=== PATIENT | male | born 1940 | race Caucasian/White ===

== ENCOUNTER → 2017-02-13 | Outpatient (CLI) | payer OTHER, BC ==
[~2017-02-13] MED LIST: ALFUZOSIN HCL10 MG PO; BP MED; DIOVAN160 MG PO; FLOMAX0.4 MG PO; LEVOTHYROXINE0.2 M1 PO; LIPITOR 10 MG10 M1; LIPITOR 20 MG T20 M1 PO; NORVASC10 MG PO; SYNTHROID175 MCG; VENTOLIN HFA 1818 GM INH
--- NOTE | ~2017-02-13 | EKG ---
[address] [place] [email or web address] [address] ELECTROCARDIOGRAM REPORT Name: PASCALE SINGLETON I [facility] [id number] Admission: 02/13/17 Attend Phys: Gee Ford MD, F Discharge: Date of : 42 Report #: [id number] THIS REPORT FOR: //name// [facility] Test Date: 2017-02-13 Test Time: 11:20:32 Pat Name: PASCALE SINGLETON Department: Room: Gender: Cand[place]: [facility] : 1940 Requested By: Gee Ford Order Number: [id number] MD: Aneudy Cervantes Measurements Intervals [place] Rate: 62 P: ID: QRS: -1 QRSD: 100 T: 72 QT: 423 QTc: 430 Interpretive Statements Atrial fibrillation Probable left ventricular hypertrophy Compared to ECG 05/12/2014 11:16:44 Sinus rhythm no longer present Electronically Signed On 02-14-2017 6:52:28 CDT by Aneudy Cervantes [email or web address] <ELECTRONICALLY SIGNED> By: Aneudy Cervantes MD, [facility] 02/14/17 0652 1120 1120 Aneudy Cervantes MD, FACC /EPI
[2017-02-13 11:06] LABS: ABSOLUTE NEUTROPHILS 5.9 thou/uL (1.4-8.2); BASOPHILS 0.8 % (0.0-2.0); EOSINOPHILS 5.6 % (0.0-3.0); HEMATOCRIT 40.2 % (42.0-52.0); HEMOGLOBIN 13.6 gm/dL (14.0-18.0); MCH 31.7 pg (26.0-34.0); MCHC 33.9 g/dL (28.0-37.0); MCV 93.4 fL (80.0-100.0); MONOCYTES 9.7 % (1.0-8.0); PLATELET COUNT 251 thou/uL (150-400); POLYS 72.9 % (36.0-66.0); WBC 8.1 thou/uL (4.0-11.0)
[2017-02-13 11:08] LABS: MANUAL DIFF NO
[2017-02-13 11:15] LABS: CALCIUM 8.5 mg/dL (8.5-10.1)
[2017-02-13 11:19] LABS: ALBUMIN 3.8 g/dL (3.4-5.0); TOTAL BILIRUBIN 0.9 mg/dL (<0.1-1.0); TOTAL PROTEIN 7.1 g/dL (6.4-8.2)
== END ==
LOC: RAD 10:18
PROVIDERS: Surgery
DX: Z01.818 Encounter for other preprocedural examination (principal); I48.91 Unspecified atrial fibrillation; I51.7 Cardiomegaly

== ENCOUNTER → 2017-02-28 | Outpatient (CLI) | payer OTHER, BC ==
--- NOTE | ~2017-02-28 | 2DMMODE ---
[facility] [address] [place] [address] 2 D/M-MODE ECHOCARDIOGRAM Name: PASCALE SINGLETON I Room #: REG [facility] [id number] Admission: 02/28/17 Attend Phys: Bravo Acuna Discharge: Date of : 42 Date of Service: 02/28/17 1354 Report #: [id number] THIS REPORT FOR: //name// APPROVED REPORT Study performed: 02/28/2017 11:52:59 EXAM: Comprehensive 2D, Doppler, and color-flow Echocardiogram Patient Location: Out-Patient Status: routine Other Information Study Quality: Good Indications Atrial Fibrillation 2D Dimensions RVDd: 41.31 mm LVEF(%): 51.06 (>50%) IVSd: 10.91 (7-11mm) LVOT Diam: 21.13 (18-24mm) LVDd: 52.29 mm PWd: 10.22 (7-11mm) Ascending Ao: 41.40 (22-36mm) LVDs: 38.58 (25-40mm) Aortic Root: 40.55 mm Joya's LVEF: 51.06 % Volumes Left Atrial Volume (Systole) Single Plane 4CH: 78.26 mL Single Plane 2CH: 85.74 mL LA ESV Index: 49.00 mL/m2 Aortic Valve AoV Peak Rafael.: 2.28 m/s AO Peak Gr.: 20.77 mmHg LVOT Max P.31 mmHg AO Mean Gr.: 14.17 mmHg AO V2 Mean: 1.84 m/s LVOT Max V: 1.26 m/s AO V2 VTI: 61.14 cm SOFIE Vmax: 1.93 cm2 AI Vmax: 4.17 m/s AI [place]: 1.99 m/s2 AI PHT: 622.71 ms Mitral Valve MV Decel. Time: 171.75 ms [facility] [employer] [address] 2 D/M-MODE ECHOCARDIOGRAM Name: PASCALE SINGLETON I Room #: [facility]#: [id number] Admission: 02/28/17 Attend Phys: Bravo [facility] Discharge: Date of : 42 Date of Service: 02/28/17 1354 Report #: [id number] MV E Max Rafael.: 1.04 m/s IVRT: 50.75 ms Pulmonary Valve PV Peak Rafael.: 1.13 m/s PV Peak Gr.: 5.08 mmHg Tricuspid Valve TR Peak Rafael.: 2.39 m/s RAP Estimate: 5.00 mmHg TR Peak Gr.: 23.06 mmHg RVSP: 28.00 mmHg Left Ventricle The left ventricle is normal size. There is normal LV segmental wall motion. There is normal left ventricular wall thickness. Left ventricular systolic function is normal. LVEF is 55%. This study is not technically sufficient to allow evaluation of the LV diastolic function due to atrial fibrillation. Right Ventricle The right ventricle is normal size. The right ventricular systolic function is normal. Atria Left atrium is dilated. Right atrium is dilated. Aortic Valve Aortic valve is moderately calcified. Mild to moderate aortic regurgitation. Borderline mild aortic stenosis. Mitral Valve Mitral valve leaflets are mildly calcified. Mild mitral regurgitation. Tricuspid Valve The tricuspid valve is normal in structure. There is mild tricuspid regurgitation. The right atrial pressure is estimated at 5 mmHg. Estimated PAP is 28mmHg. Pulmonic Valve The pulmonary valve is normal in structure. Mild to moderate pulmonic regurgitation. 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 The ascending aorta is mildly dilated at 4.1cm. IVC is normal in size and collapses >50% with inspiration. [address] [address] 2 D/M-MODE ECHOCARDIOGRAM Name: ARELIPASCALE Pacheco Room #: REG TATE Amaro#: [id number] Admission: 02/28/17 Attend Phys: Bravo [facility] Discharge: Date of : 42 Date of Service: 02/28/17 1354 Report #: [id number] Pericardium There is no pericardial effusion. <Conclusion> The left ventricle is normal size. LVEF is 55%. Left atrium is dilated. Right atrium is dilated. Aortic valve is moderately calcified. Mild to moderate aortic regurgitation. Borderline mild aortic stenosis. Mitral valve leaflets are mildly calcified. The pulmonary valve is normal in structure. Mild to moderate pulmonic regurgitation. 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 The ascending aorta is mildly dilated at 4.1cm. <ELECTRONICALLY SIGNED> By: Jorge Sy MD 02/28/17 1354 1354 1354 Jorge Sy MD /INF
== END ==
LOC: CV 12:37
DX: I48.91 Unspecified atrial fibrillation (principal)

== ENCOUNTER 2017-03-28 05:50 | Day surgery (SDC) | payer OTHER, BC ==
[~2017-03-28] VITALS: Ht 175.3 cm; Wt 71.7 kg
[~2017-03-28 05:50] MED LIST changes: +LEVOTHYROXINE 0.15MG PO; +PRADAXA150 MG PO; +TOPROL XL25 MG PO
[2017-03-28 13:30] VITALS: BP 149/78
[2017-03-28 13:43] LABS: INR 1.1; PROTIME 11.7 Seconds (9.3-11.4)
[2017-03-28] MEDS ORDERED: SENNA-S TABLET1 EACH PO (15:40)
[2017-03-28] MEDS ORDERED: HYDROCODONE-AP1 EAC6 PO (15:40)
[2017-03-28 15:55] VITALS: BP 149/78
== END 2017-03-28 16:45 | disposition home or self-care (01) ==
LOC: OR → TBA 05:51 → OR 07:36
PROVIDERS: Surgery
DX: K40.91 Unilateral inguinal hernia, without obstruction or gangrene, recurrent (principal); E07.9 Disorder of thyroid, unspecified; I48.91 Unspecified atrial fibrillation; I10 Essential (primary) hypertension; E78.00 Pure hypercholesterolemia, unspecified; J45.901 Unspecified asthma with (acute) exacerbation; Z98.41 Cataract extraction status, right eye; Z98.42 Cataract extraction status, left eye; Z98.890 Other specified postprocedural states; Z79.899 Other long term (current) drug therapy
CPT/HCPCS: 50010; 50101; 50386; 50417; 50788; 53325; 54118; 56524; 56525; 56526; 62110; 62900; 70005

== ENCOUNTER → 2019-06-03 | Outpatient (CLI) | payer OTHER, BC ==
[~2019-06-03] MED LIST changes: +HYDROCODONE-AP1 EAC6 PO; +SENNA-S TABLET1 EACH PO
--- NOTE | 2019-06-03 10:00 | 2DMMODE ---
[facility] [address] [place] [address] 2 D/M-MODE ECHOCARDIOGRAM Name: PASCALE SINGLETON I Room #: [facility] [id number] Admission: 06/03/19 Attend Phys: Bravo Acuna Discharge: Date of : 42 Date of Service: 06/03/19 1000 Report #: [id number] THIS REPORT FOR: //name// APPROVED REPORT Study performed: 06/03/2019 08:56:32 EXAM: Comprehensive 2D, Doppler, and color-flow Echocardiogram Patient Location: Out-Patient Room #: Echo lab 2 Status: routine BSA: 1.92 HR: 46 bpm BP: 118/72 mmHg Rhythm: Atrial Fibrillation Other Information Study Quality: Good Indications Atrial Fibrillation 2D Dimensions RVDd: 48.20 mm IVSd: 12.12 (7-11mm) LVOT Diam: 21.22 (18-24mm) LVDd: 53.60 mm PWd: 12.29 (7-11mm) Ascending Ao: 37.83 (22-36mm) LVDs: 34.59 (25-40mm) Aortic Root: 38.33 mm IVC: 30.00 mm Volumes Left Atrial Volume (Systole) Single Plane 4CH: 72.88 mL Single Plane 2CH: 92.30 mL LA ESV Index: 50.00 mL/m2 Aortic Valve AoV Peak Rafael.: 1.63 m/s AO Peak Gr.: 10.66 mmHg LVOT Max P.69 mmHg LVOT Max V: 0.96 m/s SOFIE Vmax: 2.08 cm2 AI Vmax: 3.97 m/s AI [place]: 1.31 m/s2 AI PHT: 879.51 ms Pulmonary Valve [facility] [address] [place] [address] 2 D/M-MODE ECHOCARDIOGRAM Name: ARELIPASCALE Pacheco Room #: [facility]#: [id number] Admission: 06/03/19 Attend Phys: Bravo Acuna Discharge: Date of : 42 Date of Service: 06/03/19 1000 Report #: [id number] PV Peak Rafael.: 1.14 m/s PV Peak Gr.: 5.25 mmHg VT End Vmax: 1.53 m/s Tricuspid Valve TR Peak Rafael.: 3.09 m/s TR Peak Gr.: 38.29 mmHg PA Pressure: 48.00 mmHg Left Ventricle The left ventricle is normal size. There is normal LV segmental wall motion. Mild concentric left ventricular hypertrophy. The left ventricular systolic function is normal. The left ventricular ejection fraction is within the normal range. LVEF is 60-65%. This study is not technically sufficient to allow evaluation of the LV diastolic function due to atrial fibrillation. Right Ventricle Right ventricle is dilated. The right ventricular systolic function is normal. Atria Left atrium is dilated. Right atrium is dilated. Aortic Valve The Aortic valve is sclerotic. Mild to moderate aortic regurgitation. There is no aortic valvular stenosis. Mitral Valve The mitral valve is normal in structure. Moderate mitral regurgitation. No evidence of mitral valve stenosis. Tricuspid Valve The tricuspid valve is normal in structure. There is moderate tricuspid regurgitation. Estimated PAP 48 mmHg. There is moderate pulmonary hypertension. Pulmonic Valve The pulmonary valve is normal in structure. Mild pulmonic regurgitation. Great Vessels The aortic root is normal in size. IVC is dilated and collapses <50% with inspiration. Pericardium There is no pericardial effusion. [facility] [address] [place] [address] 2 D/M-MODE ECHOCARDIOGRAM Name: ARELIPASCALE Pacheco [id number] Admission: 06/03/19 Attend Phys: Bravo Acuna Discharge: Date of : 42 Date of Service: 06/03/19 1000 Report #: [id number] <Conclusion> The left ventricle is normal size. Mild concentric left ventricular hypertrophy. The left ventricular systolic function is normal. Right ventricle is dilated. Left atrium is dilated. Right atrium is dilated. The Aortic valve is sclerotic. Mild to moderate aortic regurgitation. Moderate mitral regurgitation. There is moderate tricuspid regurgitation. Estimated PAP 48 mmHg. <ELECTRONICALLY SIGNED> By: Bill Bliss MD 06/03/19999 1000 Gurmeet Bliss MD /ANDRES
== END ==
LOC: CV 08:27
DX: I08.8 Other rheumatic multiple valve diseases (principal); I48.2 Chronic atrial fibrillation

== ENCOUNTER → 2019-12-12 | Outpatient (CLI) | payer OTHER, BC | LOC: SJCVCIMAG 07:41 | DX: I08.8 Other rheumatic multiple valve diseases (principal); I11.9 Hypertensive heart disease without heart failure; I48.91 Unspecified atrial fibrillation; R53.1 Weakness ==

== ENCOUNTER → 2020-06-16 | Outpatient (CLI) | payer OTHER, BC | LOC: SJCVC 12:48 | PROVIDERS: ATTEND Internal Medicine Cardiovascular Disease | DX: I48.92 Unspecified atrial flutter (principal); I44.30 Unspecified atrioventricular block; R94.31 Abnormal electrocardiogram [ECG] [EKG]; I48.21 Permanent atrial fibrillation; I10 Essential (primary) hypertension; E78.2 Mixed hyperlipidemia; I35.0 Nonrheumatic aortic (valve) stenosis; J45.909 Unspecified asthma, uncomplicated; Z82.49 Family history of ischemic heart disease and other diseases of the circulatory system; Z79.899 Other long term (current) drug therapy ==

== ENCOUNTER → 2021-06-16 | Outpatient (CLI) | payer OTHER, BC | LOC: SJCVC 13:03 | PROVIDERS: ATTEND Internal Medicine Cardiovascular Disease | DX: R94.31 Abnormal electrocardiogram [ECG] [EKG] (principal); I48.21 Permanent atrial fibrillation; I10 Essential (primary) hypertension; I35.0 Nonrheumatic aortic (valve) stenosis; Z79.899 Other long term (current) drug therapy; Z72.89 Other problems related to lifestyle ==